=== PATIENT | female | born 1960 | race Caucasian/White ===

== ENCOUNTER 2017-01-26 11:49 | Emergency (ER) | payer MEDICARE, OTHER ==
[~2017-01-26] VITALS: Ht 165.1 cm; Wt 72.6 kg
[~2017-01-26 11:49] MED LIST: ADVAIR 250-501 EACH INH; COUMADIN1 MG PO; COUMADIN5 MG PO; CRESTOR10 MG PO; FENOFIBRATE160 MG PO; FLOVENT DISKUS50 MCG IH; FLUOXETINE HCL20 M1 PO; FLUOXETINE HCL40 MG PO; FUROSEMIDE20 MG PO; KLOR-CON M2020 MEQ PO; LOVENOX120 MG SUB-Q; NORCO 7.5-3251 EACH PO; OXYCODONE HCL5 MG PO; TIROSINT100 MCG PO; TOPROL XL25 MG PO
[2017-01-26] MEDS ORDERED: COZAAR25 MG PO (12:14)
[2017-01-26] MEDS ORDERED: CYMBALTA60 MG PO (12:15)
[2017-01-26] MEDS ORDERED: JANTOVEN6 MG PO (12:16)
[2017-01-26] MEDS ORDERED: ZYRTEC10 M3 PO (12:17)
[2017-01-26] MEDS ORDERED: TRAZODONE HCL100 MG PO (12:17)
== END 2017-01-26 14:02 | disposition home or self-care (01) ==
LOC: ED 11:49
DX: K92.1 Melena (principal); R10.9 Unspecified abdominal pain; E11.9 Type 2 diabetes mellitus without complications; H34.231 Retinal artery branch occlusion, right eye; Z95.2 Presence of prosthetic heart valve; Z88.2 Allergy status to sulfonamides; Z88.1 Allergy status to other antibiotic agents; Z88.8 Allergy status to other drugs, medicaments and biological substances; Z90.49 Acquired absence of other specified parts of digestive tract; Z90.710 Acquired absence of both cervix and uterus; Z79.899 Other long term (current) drug therapy; Z79.01 Long term (current) use of anticoagulants
CPT/HCPCS: 80053; 81001; 82150; 83690; 85025; 96360; 99284; J7030